=== PATIENT | female | born 1955 | race Caucasian/White ===

== ENCOUNTER → 2022-03-12 08:39 | Outpatient (CLI) | payer OTHER, SELFPAY | PROVIDERS: Family Provider Dermatology MOHS-Micrographic Surgery; PCP Physician Assistant; Referring Provider Dermatology MOHS-Micrographic Surgery; Visit Provider Family Medicine | DX: I87.2 Venous insufficiency (chronic) (peripheral) (principal); L97.822 Non-pressure chronic ulcer of other part of left lower leg with fat layer exposed; R60.1 Generalized edema; L08.89 Other specified local infections of the skin and subcutaneous tissue; L40.9 Psoriasis, unspecified | CPT/HCPCS: 11042; 87070; 87075; 87077; 87147; 87205; 93922; 99204; 99213 ==

== ENCOUNTER → 2022-03-18 09:41 | Outpatient (CLI) | payer OTHER, SELFPAY | PROVIDERS: Family Provider Dermatology MOHS-Micrographic Surgery; PCP Physician Assistant; Visit Provider Family Medicine | DX: I87.2 Venous insufficiency (chronic) (peripheral) (principal); L97.822 Non-pressure chronic ulcer of other part of left lower leg with fat layer exposed; R60.0 Localized edema; L53.9 Erythematous condition, unspecified | CPT/HCPCS: 29581 ==

== ENCOUNTER → 2022-03-24 09:39 | Outpatient (CLI) | payer OTHER, SELFPAY | PROVIDERS: Family Provider Dermatology MOHS-Micrographic Surgery; PCP Physician Assistant; Referring Provider Physician Assistant; Visit Provider Family Medicine | DX: I87.2 Venous insufficiency (chronic) (peripheral) (principal); L97.822 Non-pressure chronic ulcer of other part of left lower leg with fat layer exposed; R60.1 Generalized edema | CPT/HCPCS: 11042 ==

== ENCOUNTER → 2022-03-31 09:36 | Outpatient (CLI) | payer OTHER, SELFPAY | PROVIDERS: Family Provider Dermatology MOHS-Micrographic Surgery; PCP Physician Assistant; Referring Provider Physician Assistant; Visit Provider Family Medicine | DX: I87.2 Venous insufficiency (chronic) (peripheral) (principal); L97.822 Non-pressure chronic ulcer of other part of left lower leg with fat layer exposed; R60.1 Generalized edema | CPT/HCPCS: 11042 ==

== ENCOUNTER → 2022-04-07 10:54 | Outpatient (CLI) | payer OTHER, SELFPAY | PROVIDERS: Family Provider Dermatology MOHS-Micrographic Surgery; PCP Physician Assistant; Referring Provider Physician Assistant; Visit Provider Family Medicine | DX: I87.2 Venous insufficiency (chronic) (peripheral) (principal); L97.822 Non-pressure chronic ulcer of other part of left lower leg with fat layer exposed; R60.1 Generalized edema | CPT/HCPCS: 97597; 99213 ==

== ENCOUNTER → 2022-04-14 10:16 | Outpatient (CLI) | payer OTHER, SELFPAY | PROVIDERS: Family Provider Dermatology MOHS-Micrographic Surgery; PCP Physician Assistant; Referring Provider Physician Assistant; Visit Provider Family Medicine | DX: I87.2 Venous insufficiency (chronic) (peripheral) (principal); L97.822 Non-pressure chronic ulcer of other part of left lower leg with fat layer exposed; R60.1 Generalized edema | CPT/HCPCS: 11042 ==

== ENCOUNTER → 2022-04-21 11:24 | Outpatient (CLI) | payer OTHER, SELFPAY | PROVIDERS: Family Provider Dermatology MOHS-Micrographic Surgery; PCP Physician Assistant; Referring Provider Physician Assistant; Visit Provider Family Medicine | DX: I87.2 Venous insufficiency (chronic) (peripheral) (principal); L97.822 Non-pressure chronic ulcer of other part of left lower leg with fat layer exposed; R60.0 Localized edema | CPT/HCPCS: 11042 ==

== ENCOUNTER → 2022-04-28 09:42 | Outpatient (CLI) | payer OTHER, SELFPAY | PROVIDERS: Family Provider Dermatology MOHS-Micrographic Surgery; PCP Physician Assistant; Referring Provider Dermatology MOHS-Micrographic Surgery; Visit Provider Family Medicine | DX: I87.2 Venous insufficiency (chronic) (peripheral) (principal); L97.822 Non-pressure chronic ulcer of other part of left lower leg with fat layer exposed; R60.0 Localized edema; T81.31XD Disruption of external operation (surgical) wound, not elsewhere classified, subsequent encounter | CPT/HCPCS: 99212 ==

== ENCOUNTER → 2025-06-21 10:15 | Outpatient (CLI) | payer MEDICARE, SELFPAY ==
--- NOTE | 2025-06-21 10:20 | DI.MG.S_ITS ---
MM screening mammo BI: 06/21/2025. BI-RADS: 1 CLINICAL: 69-year old female for bilateral screening mammogram. Tyrer-Cuzick lifetime risk of 3.8%. No personal or first-degree family history of breast cancer. PRIOR EXAMS 12/02/2022, 05/08/2019, 06/04/2016. MAMMOGRAPHY TECHNIQUE: 2D and 3D (tomosynthesis) digital mammographic views obtained, with additional images as needed for full coverage. Current study was also evaluated with a Computer Aided Detection (CAD) system. DENSITY B. There are scattered areas of fibroglandular density. MAMMOGRAPHY FINDINGS Bilateral: No suspicious mass, asymmetry, microcalcification, or other abnormality seen. IMPRESSION: * No evidence of malignancy. RECOMMENDATIONS Bilateral * Annual screening mammography. OVERALL ASSESSMENT CATEGORY BI-RADS-1: Negative. The [employer] recommends annual screening mammography beginning at age 40 for women with average risk of breast cancer. ELECTRONICALLY SIGNED: Adriano Lundberg M.D. on 06/21/2025 at 11:52:16 PM PT Interpreting Station ID: [id number]
== END ==
PROVIDERS: Family Provider Dermatology MOHS-Micrographic Surgery; PCP Family Medicine; Referring Provider Physician Assistant; Visit Provider Physician Assistant
DX: Z12.31 Encounter for screening mammogram for malignant neoplasm of breast (principal)
CPT/HCPCS: 77063; 77067